=== PATIENT | female | born 1995 | race African-American/Black ===

== ENCOUNTER 2017-10-23 13:11 | Emergency (ER) | payer SELFPAY ==
[~2017-10-23] VITALS: Ht 165.1 cm; Wt 54.0 kg
[2017-10-23] MEDS ORDERED: ACETAMINOPHEN 325MG TABLET PO ONE (13:30)
[2017-10-23 14:18] LABS: BASOPHILS % 0.6 % (0.0-2.0); EOSINOPHILS % 1.4 % (0.0-5.0); HEMATOCRIT. 42.1 % (36.0-48.0); HEMOGLOBIN. 14.1 g/dL (12.0-16.0); LYMPHOCYTES % 28.2 % (20.0-50.0); MEAN CORPUSCULAR HEMOGLOBIN 28.8 pg (28.0-32.0); MEAN CORPUSCULAR VOLUME 85.7 fL (81.0-99.0); MEAN PLATELET VOLUME 8.3 fl (7.4-10.4); MONOCYTES % 4.8 % (2.0-8.0); PLATELET 395 x1000/uL (130-400); RED BLOOD CELL COUNT 4.92 mill/uL (4.2-5.4); RED CELL DISTRIBUTION WIDTH 13.6 % (11.6-14.6)
[2017-10-23 14:23] LABS: CHLORIDE 105 mEq/L (98-107)
[2017-10-23 14:24] LABS: INR 1.2
[2017-10-23 14:46] LABS: CLARITY URINE TURBID (CLEAR); KETONES URINE NEGATIVE (NEGATIVE); LEUKOCYTE ESTERASE URINE 3+ (NEGATIVE); NITRITE URINE NEGATIVE (NEGATIVE); OCCULT BLOOD URINE 3+ (NEGATIVE); PH URINE 6.5 (4.5-8.0); PROTEIN URINE 2+ (NEGATIVE); SPECIFIC GRAVITY URINE 1.016 (1.005-1.030); UROBILINOGEN URINE 0.2 E.U./dL (0.2-1.0)
[2017-10-23 14:47] LABS: COLOR URINE AMBER (YELLOW)
[2017-10-23 15:43] LABS: *BARBITURATES SCREEN URINE NEGATIVE (NEGATIVE); *BENZODIAZEPINES SCREEN URINE NEGATIVE (NEGATIVE); *COCAINE SCREEN URINE NEGATIVE (NEGATIVE); CANNABINOID URINE SCREEN NEGATIVE (NEGATIVE); METHADONE URINE SCREEN NEGATIVE (NEGATIVE); OPIATES URINE SCREEN NEGATIVE (NEGATIVE); PHENCYCLIDINE URINE SCREEN NEGATIVE (NEGATIVE)
[2017-10-23 15:44] LABS: *AMPHETAMINES SCREEN URINE NEGATIVE (NEGATIVE)
[2017-10-23] MEDS ORDERED: SODIUM CHLORIDE 0.9% 1,000 ML IV ONE (16:21)
[2017-10-23] MEDS ORDERED: KETOROLAC 30MG/ML VIAL IV ONE (18:45)
[2017-10-23] MEDS ORDERED: CEFTRIAXONE 1 G PREMIX 50 ML IV ONE (19:00)
[2017-10-23 20:52] VITALS: BP 116/76
== END 2017-10-23 20:54 | disposition home or self-care (01) ==
LOC: ER 13:11
DX: R10.2 Pelvic and perineal pain (principal); N39.0 Urinary tract infection, site not specified; R42 Dizziness and giddiness; Z87.440 Personal history of urinary (tract) infections
CPT/HCPCS: 36415; 76830; 76856; 80053; 80305; 81003; 81025; 83690; 84484; 85025; 85610; 87077; 87086; 87186; 93005; 96361; 96374; 96375; 99285; J0696; J1885; J7030; Z7610

== ENCOUNTER 2018-11-22 23:17 | Emergency (ER) | payer MEDICARE ==
[~2018-11-22] VITALS: Ht 154.9 cm; Wt 54.0 kg
[2018-11-23 01:45] VITALS: BP 100/68
[2018-11-23] MEDS: KETOROLAC 60MG/2ML VIAL IM ONE (01:45)
== END 2018-11-23 02:59 | disposition home or self-care (01) ==
LOC: ER 23:17
DX: M54.6 Pain in thoracic spine (principal); R07.89 Other chest pain
CPT/HCPCS: 81025; 93005; 96372; 99283; J1885

== ENCOUNTER 2018-11-29 11:26 | Emergency (ER) | payer MEDICARE ==
[~2018-11-29] VITALS: Ht 154.9 cm; Wt 51.0 kg
[2018-11-29 13:57] VITALS: BP 121/88
== END 2018-11-29 15:59 | disposition left against medical advice (07) ==
LOC: ER 11:26
DX: Z53.21 Procedure and treatment not carried out due to patient leaving prior to being seen by health care provider (principal); Z87.440 Personal history of urinary (tract) infections

== ENCOUNTER 2018-11-30 00:24 | Emergency (ER) | payer MEDICARE ==
[~2018-11-30] VITALS: Ht 165.1 cm; Wt 56.3 kg
[2018-11-30 02:23] LABS: CLARITY URINE CLEAR (CLEAR); COLOR URINE ORANGE (YELLOW); KETONES URINE NEGATIVE (NEGATIVE); LEUKOCYTE ESTERASE URINE 2+ (NEGATIVE); NITRITE URINE POSITIVE (NEGATIVE); OCCULT BLOOD URINE TRACE (NEGATIVE); PH URINE 5.5 (4.5-8.0); PROTEIN URINE TRACE (NEGATIVE); SPECIFIC GRAVITY URINE 1.023 (1.005-1.030)
[2018-11-30] MEDS ORDERED: KETOROLAC 30MG/ML VIAL IM ONE (02:45)
[2018-11-30 03:11] VITALS: BP 110/73
== END 2018-11-30 02:55 | disposition home or self-care (01) ==
LOC: ER 00:24
DX: R30.0 Dysuria (principal)
CPT/HCPCS: 81003; 96372; 99283; J1885